=== PATIENT | female | born 1965 | race Caucasian/White ===

== ENCOUNTER 2018-10-15 18:17 | Emergency (ER) | payer MEDICARE, MEDICAID ==
--- NOTE | 2018-10-15 18:47 | ED Physician Chart ---
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 Pain, or urinary s/s; pt's last tetanus shot: > 5 years Historian:: Patient, EMS Review:: Nurse's Note Reviewed, Old Chart Reviewed, EMS run form Reviewed <Thompson Martinez - Last Filed: 10/16/18 10:14> ED Review of Systems - Review of Systems General/Constitutional: No fever, No chills, No weight loss, No weakness, No diaphoresis, No edema, No loss of appetite Skin: No skin lesions, No rash, No bruising Head: No headache, No light-headedness Eyes: No loss of vision, No pain, No diplopia ENT: No earache, No nasal drainage, No sore throat, No tinnitus Neck: No neck pain, No swelling, No thyromegaly, No stiffness, No mass noted Cardio Vascular: No chest pain, No palpitations, No PND, No orthopnea, No edema Pulmonary: No SOB, No cough, No sputum, No wheezing GI: No nausea, No vomiting, No diarrhea, No pain, No melena, No hematochezia, No constipation, No hematemesis G/U: No dysuria, No frequency, No hematuria, No nacturia [employer] P[employer] Designer: No vaginal discharge, No abnormal vaginal bleed, No contraction Musculoskeletal: No bone or joint pain, No back pain, No muscle pain Endocrine: No polyuria, No polydipsia Psychiatric: Prior psych history, Depression, Anxiety, No suicidal ideation, No homicidal ideation, No auditory hallucination, No visual hallucination Hematopoietic: No bruising, No lymphadenopathy Allergic/Immuno: No urticaria, No angioedema Neurological: No syncope, No focal symptoms, No weakness, No paresthesia, No headache, No seizure, No dizziness, No confusion, No vertigo <Thompson Martinez Last Filed: 10/16/18 10:14> ED Past Medical History - Past Medical History Obtainable: Yes Past Medical History: HTN, Asthma/COPD, Other (Hepatitis) Family History: HTN Social History: Non Smoker, No Alcohol, No Drug Use, Single Surgical History: None Psychiatricy History: Schizophrenia, Bipolar Medication: Reviewed <Thompson Martinez Filed: 10/16/18 10:14> Family Medical History - Family Member Mother History Unknown: Yes <Thompson Martinez Filed: 10/16/18 10:14> ED Physical Exam - Physical Examination General/Constitutional: Awake, Well-developed, well-nourished, Alert, No distress, GCS 15, Non-toxic appearing, Ambulatory Head: Atraumatic Eyes: Lids, conjuctiva normal, PERRL, EOMI Skin: Nl inspection, No rash, No skin lesions, No ecchymosis, Well hydrated, No lymphadenopathy Other Skin comments:: + Left Knee Wound ENMT: External ears, nose nl, TM canals nl, Nasal exam nl, Lips, teeth, gums nl , Oropharynx nl, Tonsils nl Neck: Nontender, Full ROM w/o pain, No JVD, No nuchal rigidity, No bruit, No mass, No stridor Respiratory: Nl effort/Exclusion, Clear to Auscultation, No Wheeze/Rhonchi/Rales Cardio Vascular: RRR, No murmur, gallop, rubs, NL S1 S2, Carotid/Femoral/Distal pulses equal bilaterally GI: No tenderness/rebounding/guarding, No organomegaly, No hernia, Normal BS's, Nondistended, No mass/bruits, No McBurney tenderness : No CVA tenderness Extremities: No tenderness or effusion, Full ROM, normal strength in all extremities, No edema, Normal digits & nails Neuro/Psych: Alert/oriented, DTR's symmetric, Normal sensory exam, Normal motor strength, Judgement/insight normal, Mood normal, Normal gait, No focal deficits Misc: Normal back, No paraspinal tenderness <Thompson Martinez - Last Filed: 10/16/18 10:14> ED Labs/Radiology/EKG Results - Lab Results Results: Laboratory Tests 10/15/18 10/15/18 10/15/18 19:03 19:03 19:03 WBC 4.5 L RBC 3.65 L Hgb 12.4 Hct 36.5 L MCV 99.9 MCH 34.0 H MCHC Differential 34.0 RDW 12.1 Plt Count 512 H MPV 6.3 Neutrophils % 57.2 Lymphocytes % 32.6 Monocytes % 8.7 Eosinophils % 0.7 Basophils % 0.8 Sodium 137 Potassium 3.4 L Chloride 104 Carbon Dioxide 23.7 Anion Gap 12.7 BUN 6 L Creatinine 0.5 L Est GFR ( Amer) > 60.0 Est GFR (Non-Af Amer) > 60.0 BUN/Creatinine Ratio 12.0 Glucose 101 Calcium 8.8 Total Bilirubin 0.4 AST 12 L ALT 8 Alkaline Phosphatase 52 Troponin I Total Protein 5.2 L Albumin 3.1 L Globulin 2.1 Albumin/Globulin Ratio 1.5 Triglycerides 82 Cholesterol 166 LDL Cholesterol Direct 105 HDL Cholesterol 39 TSH 0.26 L Serum , Qual Salicylates < 25.0 L Acetaminophen < 10.0 L Ethyl Alcohol < 10 10/15/18 10/15/18 19:03 19:03 WBC RBC Hgb Hct MCV MCH MCHC Differential RDW Plt Count MPV Neutrophils % Lymphocytes % Monocytes % Eosinophils % Basophils % Sodium Potassium Chloride Carbon Dioxide Anion Gap BUN Creatinine Est GFR ( Amer) Est GFR (Non-Af Amer) BUN/Creatinine Ratio Glucose Calcium Total Bilirubin AST ALT Alkaline Phosphatase Troponin I < 0.01 L Total Protein Albumin Globulin Albumin/Globulin Ratio Triglycerides Cholesterol LDL Cholesterol Direct HDL Cholesterol TSH Serum , Qual NEGATIVE Salicylates Acetaminophen Ethyl Alcohol <Charles Lima - Last Filed: 10/15/18 22:48> - Lab Results Comments:: Reviewed - EKG Interpretations EKG Time:: 18:54 Rate & Rhythm: 87; NSR Comments:: non-specific st-changes <Thompson Martinez - Last Filed: 10/16/18 10:14> ED Septic Shock - <6hrs of presentation: Vital Signs: Vital Signs - 8 hr 10/15/18 10/15/18 18:43 20:37 Temp 97.8 F HR 80 RR 16 BP 115/85 O2 Sat % 96 97 <Charles Lima - Last Filed: 10/15/18 22:48> - . Is Septic Shock (SBP<90, OR Lactate>4 mmol\L) present?: No <Thompson Martinez - Last Filed: 10/16/18 10:14> ED Reassessment (Disposition) - Reassessment Reassessment:: Pt received TDAP and Rocephin 1g IM for left knee wound. Pt has mild hypokalemia , ordered KCL 40 mEq PO. But pt refused to take KCL. Pt awaited for further psych evaluation and management. Reassessment Condition:: Improved <Charles Lima - Last Filed: 10/15/18 22:48> - Reassessment Reassessment Condition:: Improved - Diagnosis Diagnosis:: Agitation; Medical Clearance; Hypokalemia; Wound; Bipolar Disorder - Aftercare/Follow up Instructions Aftercare/Follow-Up Instructions:: Counseled pt regarding lab results/diagnosis & need follow up, Refer to Discharge Instructions, Counseled pt & family regarding lab results/diagnosis & need follow up - Patient Disposition Discharge/Transfer:: [facility] Condition at Disposition:: Stable, Improved (RTER prn if existing s/s reoccur and/or get worse and/or any other new s/s occur; ACIs given for all above Dx; Refer to Psychiatrist/Claims Adjustor NATHALY; F/U with PMD Today; RTER prn if concerned ; pt to be transferred via EMS Ambulance as a direct admit to [facility]) <Thompson Martinez - Last Filed: 10/16/18 10:14>
[2018-10-15 19:10] LABS: % BASOPHILS 0.8 % (0.0-2.0); % EOSINOPHILS 0.7 % (0.0-5.0); % LYMPHOCYTES 32.6 % (20.0-50.0); % MONOCYTES 8.7 % (2.0-10.0); % NEUTROPHILS 57.2 % (40.0-80.0); HEMATOCRIT 36.5 % (41.0-60); HEMOGLOBIN 12.4 gm/dL (12-16); LYMPHOCYTE ABSOLUTE 1.5 Th/cmm (1.5-3.0); MEAN CELL VOLUME 99.9 fl (81-100); MEAN PLATELET VOLUME 6.3 fl; MONOCYTE ABSOLUTE 0.4 Th/cmm (0.3-1.0); NEUTROPHILE ABSOLUTE 2.6 Th/cmm (1.8-8.0); PLATELET COUNT 512 Th/cmm (150-400); RED BLOOD COUNT 3.65 Mil/cmm (3.80-5.10); RED CELL DISTRIBUTION WIDTH 12.1 % (11.5-20.0); WHITE BLOOD COUNT 4.5 Th/cmm (4.8-10.8)
[2018-10-15 19:24] LABS: ACETAMINOPHEN < 10.0 ug/mL (10.0-30.0); ALB/GLOB RATIO 1.5 (1.0-1.8); ALBUMIN 3.1 gm/dL (3.7-5.3); ALKALINE PHOSPHATASE 52 U/L (34-104); ANION GAP 12.7 (7.0-16.0); BILIRUBIN,TOTAL 0.4 mg/dL (0.3-1.0); BUN - UREA NITROGEN 6 mg/dL (7-25); CALCIUM SERUM 8.8 mg/dL (8.6-10.3); CARBON DIOXIDE 23.7 mEq/L (21.0-31.0); CHLORIDE 104 mEq/L (98-107); CHOLESTEROL 166 mg/dL (<200); CREATININE - SERUM 0.5 mg/dL (0.6-1.2); GFR AFRICAN-AMERICAN > 60.0 ml/min (>90); GFR NON AFRICAN-AMERICAN > 60.0 ml/min; GLUCOSE 101 mg/dL (70-105); HDL -HIGH DENSITY LIPOPROTEIN 39 mg/dL (23-92); POTASSIUM SERUM 3.4 mEq/L (3.5-5.1); SGOT 12 U/L (13-39); SGPT/ALT 8 U/L (7-52); SODIUM SERUM 137 mEq/L (136-145); TOTAL PROTEIN,SERUM 5.2 gm/dL (6.0-8.3); TRIGLYCERIDES 82 mg/dL (<150)
[2018-10-15 19:42] LABS: SALICYLATES (ASPIRIN) < 25.0 mg/L (30.0-100.0)
[2018-10-15] MEDS ORDERED: Potassium Chloride 20 mEq ER Tab PO ONE ×2 (21:58→22:00)
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
== END 2018-10-16 09:20 | disposition short-term general hospital (02) ==
LOC: ER 18:17
DX: S81.002A Unspecified open wound, left knee, initial encounter (principal); F31.9 Bipolar disorder, unspecified; E87.6 Hypokalemia; R45.1 Restlessness and agitation; I10 Essential (primary) hypertension; J44.9 Chronic obstructive pulmonary disease, unspecified; F20.9 Schizophrenia, unspecified; X58.XXXA Exposure to other specified factors, initial encounter; Y93.89 Activity, other specified; Y92.89 Other specified places as the place of occurrence of the external cause; Y99.8 Other external cause status
CPT/HCPCS: 99285; 96372; 93005; 84484; 36415; 84443; 86592; 85025; 80329 ×2; 80320; 84703; 80053; 80061; 90715; J0696